=== PATIENT | female | born 1990 | race Caucasian/White ===

== ENCOUNTER 2016-06-11 02:30 | Emergency (ER) | payer BC, OTHER ==
[~2016-06-11] VITALS: Ht 157.5 cm; Wt 70.2 kg
[2016-06-11 02:33] VITALS: Ht 157.5 cm; Wt 70.2 kg
[2016-06-11] MEDS ORDERED: ONDANSETRON (ODT) 4 MG TAB ODT STA (03:54)
--- NOTE | 2016-06-11 04:18 | RADRPT ---
PROCEDURE: Chest. CLINICAL INDICATION: Chest pain. TECHNIQUE: Single frontal view of the chest was obtained. COMPARISON: None. FINDINGS: The cardiac silhouette is within normal limits. The aortic arch is unremarkable. There is no focal consolidation, vascular congestion or pleural effusion. There is no pneumothorax. IMPRESSION: No evidence for active cardiopulmonary disease. .Alhaji Vera MD, MD Date Time Electronically viewed and signed by .Alhaji Vera MD, on 06/11/2016 04:18 .T/
[2016-06-11] MEDS ORDERED: FLUO10TA PO (04:23)
[2016-06-11] MEDS ORDERED: LORA-441 PO (04:23)
--- NOTE | 2016-06-11 04:26 | ERD ---
ER Documentation Chief Complaint Date/Time DATE: 06/11/16 TIME: 04:20 Chief Complaint Pt c/o CP and sob that started at 0100 that woke her up HPI 25-year-old female presents here in emergency department for complaints of waking up with shortness of breath and chest pain tonight. Patient states that she woke up feeling short of breath, and having chest pain. Patient is history of anxiety. Patient states it feels different than her previous anxiety attacks. Patient does not have any cough or wheezing. Patient denies any dyspnea on exertion. Patient denies any fever or chills. Patient denies any dizziness. Patient denies any numbness or tingling. Patient did not take her anxiety medication at home. Patient described the chest pain as sharp pain, 4/ 10 scale, accompanied with episodes of shortness of breath. Patient states that she got panic attacks afterwards. ROS All systems reviewed and are negative except as per history of present illness. Medications Home Meds Reported Medications Lorazepam* (Ativan*) Unknown Strength Tablet, PO Q8H Y for ANXIETY, #10 TAB 06/11/16 Fluoxetine Hcl* (Fluoxetine Hcl*) Unknown Strength Tablet, PO DAILY, TAB 06/11/16 Allergies Allergies: Coded Allergies: No Known Allergy (Unverified , 09/18/11) PMhx/Soc Medical and Surgical Hx: pt denies Surgical Hx History of Surgery: No Anesthesia Reaction: No Hx Neurological Disorder: No Hx Respiratory Disorders: No Hx Cardiac Disorders: No Hx Psychiatric Problems: Yes (ANXIETY; DEPRESSION) Hx Miscellaneous Medical Probl: Yes (ANEMIA) Hx Alcohol Use: Yes ("WAY TOO MUCH", 06/08) Hx Substance Use: No Hx Tobacco Use: No Smoking Status: Never smoker FmHx Family History: diabetes, other (hypertension) Physical Exam Vitals Vital Signs Date Time Temp Pulse Resp B/P Pulse Ox O2 Delivery O2 Flow Rate FiO2 06/11/16 02:33 98.3 79 16 122/58 100 Physical Exam GENERAL: The patient is well developed and appropriate for usual state of health, in no apparent distress. CHEST: Clear to auscultation bilaterally. There are no rales, wheezes or rhonchi. HEART: Regular rate and rhythm. No murmurs, clicks, rubs or gallops. No S3 or S4. ABDOMEN: Soft, nontender and nondistended. Good bowel sounds. No rebound or guarding. No gross peritonitis. No gross organomegaly or masses. No Rossi sign or McBurney point tenderness. BACK: No midline or flank tenderness. EXTREMITIES: Equal pulses bilaterally. There is no peripheral clubbing, cyanosis or edema. No focal swelling or erythema. Full range of motion. Grossly neurovascularly intact. NEURO: Alert and oriented. Cranial nerves 2-12 intact. Motor strength in all 4 extremities with 5/5 strength. Sensation grossly intact. Normal speech and gait. SKIN: There is no apparent rash or petechia. The skin is warm and dry. HEMATOLOGIC AND LYMPHATIC: There is no evidence of excessive bruising or lymphedema. No gross cervical, axillary, or inguinal lymphadenopathy. PSYCHIATRIC: Patient is calm and cooperative at this time. Not verbalizing homicidal or suicidal ideations. Results 24 hrs Current Medications Medications (Trade) Dose Ordered Sig/Ramon Route PRN Reason Start Time Stop Time Status Last Admin Dose Admin Ondansetron HCl (Zofran Odt) 4 mg ONCE STAT ODT 06/11/16 03:54 06/11/16 03:55 DC 06/11/16 04:11 Patient was given Zofran here in the emergency department. After treatment, patient was able to tolerate po fluids here in the emergency department without any vomiting. There is no signs and symptoms of dehydration. EKG was done, read by me and is normal sinus rhythm at a rate of 74, normal axis , there is no ST changes or changes in the EKG that indicates any cardiac emergencies at this time. Patient's EKG was also reviewed by Dr. Castle. Impression: no acute findings on EKG PROCEDURE: Chest. CLINICAL INDICATION: Chest pain. TECHNIQUE: Single frontal view of the chest was obtained. COMPARISON: None. FINDINGS: The cardiac silhouette is within normal limits. The aortic arch is unremarkable. There is no focal consolidation, vascular congestion or pleural effusion. There is no pneumothorax. IMPRESSION: No evidence for active cardiopulmonary disease. .Alhaji Vera MD, Date Time Electronically viewed and signed by .Alhaji Vera MD, on 06/11/2016 04:18 .T/ CC: JIM SHARMA NP Procedures/MDM Medical Decision Making: Patient's symptoms of shortness of breath and chest pain nonspecific at this time, possible anxiety related. There is low suspicion for cardiopulmonary emergencies at this time. Patient has low risk factors. EKG is normal, there is no changes in the EKG that indicates cardiac emergencies. Chest X-ray does not show cardiopulmonary emergencies at this time. There is low suspicion for aortic aneurysm, myocardial infarction, pneumothorax, pleural effusion, pulmonary embolism, or any other cardiopulmonary emergencies at this time. Patient was advised to continue anxiety medication, follow-up with closing specialist within 2-3 days, see primary care doctor and possibly be referred to production corrugator specialist for further evaluation of symptoms. Patient was advised to return to emergency department for any worsening symptoms. Departure Diagnosis: Primary Impression: Atypical chest pain Condition: Stable Patient Instructions: Chest Pain, Noncardiac Additional Instructions: Patient was advised to continue anxiety medication, follow-up with closing specialist within 2-3 days, see primary care doctor and possibly be referred to production corrugator specialist for further evaluation of symptoms. Patient was advised to return to emergency department for any worsening symptoms. JIM SHARMA NP Jun 11, 2016 04:26
[2016-06-11 04:50] VITALS: BP 114/73; PULSE 66; RESP 16; TEMP 98.3
== END 2016-06-11 04:50 | disposition home or self-care (01) ==
LOC: FTE 02:30
DX: R07.89 Other chest pain (principal)
CPT/HCPCS: 71010; 93005

== ENCOUNTER 2017-11-11 00:41 | Emergency (ER) | END 2017-11-11 02:20 | disposition home or self-care (01) ==

== ENCOUNTER 2018-04-28 05:21 | Emergency (ER) | payer BC ==
[~2018-04-28] VITALS: Ht 157.5 cm; Wt 73.3 kg
[~2018-04-28 05:21] MED LIST: FLUO10TA PO; LORA-441 PO; ONDA4TAB14 PO
[2018-04-28 05:22] VITALS: BP 117/58; PULSE 82; RESP 19; Ht 157.5 cm; Wt 73.3 kg
--- NOTE | 2018-04-28 06:29 | ERD ---
ER Documentation Chief Complaint Chief Complaint LEFT SRM NUMBNESS/TINGLING AFTER WAKING UP; NO CP; NO KNOWN INJ HPI Patient is a 27-year-old female with past medical history of anxiety, de pression, who presents the ER for concerns of left arm numbness which started at 4 AM this morning. Patient states she woke up feeling that her left arm was numb. Patient states she is noticed that she has had some tingling up her arm since that time. Patient denies any chest pain or shortness of breath. Patient states that she is nervous that she may be "having a heart attack". Patient does admit to daily alcohol use and states she drinks 3-4 mixed drinks per day. Patient is currently enrolled in alcoholic Anonymous classes and does have a psychiatrist. Patient states she does have lorazepam which she only wants to take when she is extremely nervous. Patient states she does not like taking this medication. Patient denies any fevers or chills. Patient denies any drug use. Patient denies any recent travel, history of DVT/PE, leg swelling. Patient denies any fevers or chills. Patient has no cough. ROS All systems reviewed and are negative except as per history of present illness. Medications Home Meds Active Scripts Ondansetron (Ondansetron Odt) 4 Mg Tab.rapdis, 4 MG PO Q6H PRN for NAUSEA AND/OR VOMITING, #20 TAB Prov:JIM SHARMA NP 11/11/17 Reported Medications Lorazepam* (Ativan*) Unknown Strength Tablet, PO Q8H PRN for ANXIETY, #10 TAB 06/11/16 Fluoxetine Hcl* (Fluoxetine Hcl*) Unknown Strength Tablet, PO DAILY, TAB 06/11/16 Allergies Allergies: Coded Allergies: acyclovir (Verified Allergy, Intermediate, throat itching, 11/11/17) PMhx/Soc History of Surgery: No Anesthesia Reaction: No Hx Neurological Disorder: No Hx Respiratory Disorders: No Hx Cardiac Disorders: No Hx Psychiatric Problems: Yes (ANXIETY; DEPRESSION) Hx Miscellaneous Medical Probl: Yes (ANEMIA) Hx Alcohol Use: Yes (pt stated she is a heavy drinker) Hx Substance Use: Yes (Marijuana) Hx Tobacco Use: No Smoking Status: Never smoker FmHx Family History: No diabetes Physical Exam Vitals Vital Signs Date Temp Pulse Resp B/P (MAP) Pulse Ox O2 O2 Flow FiO2 Time Delivery Rate 04/28/18 97.9 82 19 117/58 99 05:22 (77) Physical Exam GENERAL: Well-developed, well-nourished female. Appears anxious. HEAD: Normocephalic, atraumatic. EYES: Pupils are equally reactive bilaterally. EOMs grossly intact. No conjunctival erythema. ENT: Moist mucous membranes. No uvula deviation. No kissing tonsils. NECK: Supple. No meningismus. Normal range of motion of the neck. LUNG: Clear to auscultation bilaterally. No rhonchi, wheezing, rales or coarse breath sounds. HEART: Regular rate and rhythm. No murmurs, rubs or gallops. EXTREMITIES: Equal pulses bilaterally. No peripheral clubbing, cyanosis or edema. No unilateral leg swelling. NEUROLOGIC: Alert and oriented. Normal mental state. Moving all four extremities without any difficulty. Normal speech. Steady gait. No delirium tremens. SKIN: Normal color. Warm and dry. No rashes or lesions. Results 24 hrs Current Medications Medications Dose Sig/Ramon Start Time Status Last (Trade) Ordered Route PRN Stop Time Admin Dose Reason Admin Lorazepam 0.5 mg ONCE ONCE 04/28/18 DC 04/28/18 (Ativan) PO 06:30 04/28/18 06:32 06:31 Procedures/MDM ED COURSE: The patient was stable throughout ED course. I kept the patient and/or family informed of laboratory and diagnostic imaging results throughout the ED course. EKG: Read by Dr. Bishop, attending physician. EKG shows normal sinus rhythm at a rate of 79 bpm. No arrhythmias, acute ST elevations or T wave changes were noted. MEDICATIONS GIVEN: Ativan Patient tolerated medication well with no adverse reactions. Patient reported improvement in pain. MEDICAL DECISION MAKING: This is a 27-year-old female who presents ER for concerns of left arm numbness which started around 4 AM today. Patient denies any chest pain or shortness of breath. Patient states she was concerned that she may be "having a heart attack". Patient does have a history of anxiety. Patient does drink alcohol da alesia.. Patient denied any leg swelling, recent surgeries, travel, exogenous estrogen use. Patient denies any homicidal suicidal ideations. Vital signs were reviewed. Patient was afebrile. Patient was not hypoxic. Patient did appear to be anxious. Cardiac exam was normal. Lung exam was normal. Pain was reproduced with palpation. EKG was within normal limits. Patient was given At jack p.o. 0.5 mg, and did have improvement in symptoms. I did reassure the patient that her EKG was within normal limits and I do not feel that she is having an acute STEMI at this time. Patient was advised to continue to follow- up with her psychiatrist as well as continue to go to alcoholic [employer] courses. Low suspicion for ACS, arrhythmia, pericarditis, pneumonia, pneumotho rax, PE, aortic dissection. Patient was nontoxic, non-ill appearing prior to discharge. Patient does have prescription of Ativan which she was advised to take as symptoms. PRESCRIPTIONS: None DISCHARGE: At this time, patient is stable for discharge and outpatient management. I have instructed the patient to follow-up with his/her primary care physician in 1-2 days. If symptoms persist, patient may need to see a specialist for further examinations and testing. I have instructed the patient to promptly return to the ER at any time for any new or worsening symptoms including increased increased pain, fever, nausea, vomiting, numbness, weakness, diaphoresis or LOC. The patient and/or family expressed understanding of and agreement with this plan. All questions were answered. Home care instructions were provided. Disclaimer: Inadvertent spelling and grammatical errors are likely due to EHR/dictation software use and do not reflect on the overall quality of patient care. Also, please note that the electronic time recorded on this note does not necessarily reflect the actual time of the patient encounter. Departure Diagnosis: Primary Impression: Paresthesias Additional Impression: Anxiousness Condition: Fair Patient Instructions: Your Body's Response to Anxiety, Paraesthesias Referrals: [facility] YOU HAVE RECEIVED A MEDICAL SCREENING EXAM AND THE RESULTS INDICATE THAT YOU DO NOT HAVE A CONDITION THAT REQUIRES URGENT TREATMENT IN THE EMERGENCY DEPARTMENT. FURTHER EVALUATION AND TREATMENT OF YOUR CONDITION CAN WAIT UNTIL YOU ARE SEEN IN YOUR DOCTORS OFFICE WITHIN THE NEXT 1-2 DAYS. IT IS YOUR RESPONSIBILITY TO MAKE AN APPOINTMENT FOR FOLOW-UP CARE. IF YOU HAVE A PRIMARY DOCTOR --you should call your primary doctor and schedule an appointment IF YOU DO NOT HAVE A PRIMARY DOCTOR YOU CAN CALL OUR PHYSICIAN REFERRAL HOTLINE AT IF YOU CAN NOT AFFORD TO SEE A PHYSICIAN YOU CAN CHOSE FROM THE FOLLOWING [facility] [address] [facility] [address] [facility] [address] [facility] [address] [facility] [address] [facility]. [facility]. [address] [facility]. [facility] YOU HAVE RECEIVED A MEDICAL SCREENING EXAM AND THE RESULTS INDICATE THAT YOU DO NOT HAVE A CONDITION THAT REQUIRES URGENT TREATMENT IN THE EMERGENCY DEPARTMENT. FURTHER EVALUATION AND TREATMENT OF YOUR CONDITION CAN WAIT UNTIL YOU ARE SEEN IN YOUR DOCTORS OFFICE WITHIN THE NEXT 1-2 DAYS. IT IS YOUR RESPONSIBILITY TO MAKE AN APPOINTMENT FOR FOLOW-UP CARE. IF YOU HAVE A PRIMARY DOCTOR --you should call your primary doctor and schedule and appointment IF YOU DO NOT HAVE A PRIMARY DOCTOR YOU CAN CALL OUR PHYSICIAN REFERRAL HOTLINE AT . IF YOU CAN NOT AFFORD TO SEE A PHYSICIAN YOU CAN CHOSE FROM THE FOLLOWING [facility] INSTITUTIONS: [facility] [address] [place] [address] [facility] [address] [place] [address] [facility] [address] [place] [address] Additional Instructions: Continue attending AA classes. Follow-up with your psychiatrist. Alcohol cessation advised. Call your primary care doctor TOMORROW for an appointment during the next 1-2 days.See the doctor sooner or return here if your condition worsens before your appointment time. MAURICIO COONEY PA-C Apr 28, 2018 06:29
[2018-04-28] MEDS ORDERED: LORAZEPAM 0.5 MG TAB PO ONE (06:30)
== END 2018-04-28 07:14 | disposition home or self-care (01) ==
LOC: FTE 05:21
DX: R20.2 Paresthesia of skin (principal); F41.9 Anxiety disorder, unspecified; M79.602 Pain in left arm
CPT/HCPCS: 93005